=== PATIENT | male | born 1985 | race Caucasian/White ===

== ENCOUNTER → 2017-09-02 | Outpatient (CLI) | payer BC ==
--- NOTE | 2017-09-02 16:02 | HKNOTE ---
DATE OF SERVICE: 09/02/2017 MAIN COMPLAINT: Pain and instability of the right knee. HISTORY OF MAIN COMPLAINT: The patient is a 32-year-old male whose right knee and ankle were appare ntly completely normal until 3 weeks ago. His right knee suddenly gave way on him as he was walking around in the house. His right knee "smashed into the left knee and my right ankle." The episode occurred while he was trying to get out of bed. Since then, he has had a great deal of pain in the right knee. The knee does not swell. It feels u nstable. He is unable to carry his weight. The knee will not extend fully. Other than that, there is no locking. The right ankle did not become swollen, nor did it become ecchymotic. Patient has multiple medical problems, which include diabetes, chronic back pain, gastroparesis, sudeep y great weight loss in the last 18 months. The patient is under chronic pain management by Dr. Rajinder Berrios in [place]. Patient does have a history of problems with his lower back. He does have numbness and tingling in his legs. He cannot walk very far. He uses crutches all the time. He is limping. PAST ORTHOPEDIC HISTORY: Surgery to the lumbar spine at 3 levels for fusion. Surgery performed by Dr. Lewis Paniagua at [facility]. PRIOR CORTISONE INTAKE: None. ALCOHOL INTAKE: None. OTHER JOINT PROBLEMS: "Pain in different areas." WORK STATUS: The patient is on disability. PAST MEDICAL HISTORY: 1. Diabetes type 1. 2. Gastroparesis. 3. Extensive weight loss (270 pounds in the last 18 months). PAST SURGICAL HISTORY: Partial gastrectomy x2 for gastroparesis. DRUG ALLERGIES: NONE. MEDICATIONS: 1. Lyrica. 2. Fentanyl. 3. Trazodone. 4. Ambien. 5. Librax. 6. Dilaudid. 7. Trileptal for sleep and "mood stabilizer." FAMILY HISTORY: Noncontributory. SYSTEMS REVIEW: Prone to dizzy spells, persistent nausea and heartburn. Poor appetite. Diabetes. HABITS: The patient smokes 2 cigarettes a day. Alcohol intake, none. PHYSICAL EXAMINATION: GENERAL: The patient is an incredibly fragile-looking 32-year-old male. He looks cachectic. GAIT: He walks with a pair of crutches. He is not able to take a single step without the crutches. VITAL SIGNS: Height 6 foot 3 inches, weight 175 pounds (formally over 350 pounds). HIPS: Both hips have a full range of motion without pain. RIGHT KNEE: The right knee shows normal alignment. Extension is -20 degrees (marked pain on attempt ing further). Flexion lacks 25 degrees (marked pain on further flexion). The medial and lateral kayla ateral ligaments and cruciate ligaments are intact. Renee test is negative. There is 1+ effusion. Tender over the medial joint. There is no scarring, crepitus, or cysts. The patella tracks normall y. There is no tenderness on the articular surface of the patella or in the patellar groove. The Q a ngle is normal. RIGHT ANKLE: No tenderness anywhere around the ankle. No external sign of recent injury. Dorsifle xion and plantarflexion flexion are nonexistent. DISCUSSION: A 32-year-old male with a complex variety of symptoms and problems. He took a fall and injured his right knee. The symptoms and clinical findings are highly suggestive of a torn meniscu s in the right knee. The weakness (paralysis) on dorsiflexion and plantar flexion of the right foot and ankle are markedl y perplexing. MANAGEMENT: 1. The patient is being sent for an MRI scan of the right knee. 2. He will continue using his crutches. 3. He is given prescription for a knee immobilizer. 4. I will call Ronel [phone] when MRI result is available, and we will discuss where we go fro m here. Regardless, he will need to have a neurological consultation concerning the foot and ankle weakness. Dictated By: BRITTANEY RODRÍGUEZ/ANGELITO Conf#: [id number] DID#: [id number] CC: Rajinder Berrios;*[facility]*
--- NOTE | 2017-09-02 16:27 | RADRPT ---
PROCEDURE: Right knee radiographs. CLINICAL INDICATION: Right knee pain. TECHNIQUE: Three views. Weight bearing. Frontal, lateral, and patellar view. COMPARISON: No prior studies are available for comparison. FINDINGS: There is no acute fracture or dislocation. There is an old healed fracture of the proximal shaft of the fibula with anatomic alignment. The soft tissues are normal. The articular surfaces are intact. There is no lytic or blastic lesion. There is no radiopaque foreign body. IMPRESSION: 1. Old healed fracture of the proximal shaft of the fibula. 2. Otherwise unremarkable images of the right knee. RPTAT: QQ .Darion Marsh MD, MD Date Time Electronically viewed and signed by .Darion Marsh MD, MD on 09/02/2017 16:27 .R/
== END | disposition home or self-care (01) ==
LOC: HKI 09:08
DX: M25.561 Pain in right knee (principal); E11.9 Type 2 diabetes mellitus without complications; R42 Dizziness and giddiness; Z90.3 Acquired absence of stomach [part of]; Z98.1 Arthrodesis status; Z72.0 Tobacco use
CPT/HCPCS: 73562; G0463

== ENCOUNTER → 2017-09-22 | Outpatient (CLI) | payer BC ==
--- NOTE | 2017-09-23 07:04 | HKNOTE ---
DATE OF SERVICE: 09/22/2017 CHIEF COMPLAINT: Right knee pain. HISTORY OF PRESENT ILLNESS: This is a 32-year-old male who sustained an injury to his right knee se veral months ago. He has instability of his right knee. He was given a knee brace, but does not us e it. He uses crutches for ambulation. He denies any locking of his knee. He has occasional click ing of his right knee. He denies any hip pain. He has had previous spine surgery with 3-level fusi on. GAIT: Antalgic gait, reciprocal gait pattern. RIGHT KNEE EXAMINATION: Joint line tenderness over the medial and lateral joint lines, neutral alig nment, 0 to 130 degrees range of motion. Negative Paulette's, negative Renee, negative anterior d rawer, negative posterior drawer. MOTOR STRENGTH: 3/5 quadriceps, tibialis anterior. X-RAYS, RIGHT KNEE: No abnormalities seen. MRI, RIGHT KNEE: There is a complex tear of the posterior horn of the medial meniscus. IMPRESSION: A 32-year-old male with right knee complex tear posterior horn of the medial meniscus. PLAN: I discussed treatment options with the patient. I explained to him that given his weakness o f the right lower extremity, it is best for him to see a neurologist. In regards to his right knee, I discussed use of a knee brace as well as physical therapy. He was given a prescription to begin outpatient physical therapy. He will follow up as needed in the future. Dictated By: RASHMI JORGENSEN/ANGELITO Conf#: [id number] DID#: [id number]
== END | disposition home or self-care (01) ==
LOC: HKI 09:24
PROVIDERS: ATTEND Orthopaedic Surgery Adult Reconstructive Orthopaedic Surgery
DX: M23.221 Derangement of posterior horn of medial meniscus due to old tear or injury, right knee (principal)
CPT/HCPCS: G0463